=== PATIENT | female | born 1950 | race Caucasian/White ===

== ENCOUNTER → 2017-08-25 12:59 | Outpatient (CLI) | payer OTHER ==
[~2017-08-25 12:59] MED LIST: BENTYL10 MG/ML; EVISTA60 MG; PREVACID15 MG; SYNTHROID50 MCG; ZANTAC15 MG/ML
== END | disposition home or self-care (01) ==
LOC: LAB 12:59
DX: Z00.00 Encounter for general adult medical examination without abnormal findings (principal); R50.9 Fever, unspecified; J06.9 Acute upper respiratory infection, unspecified

== ENCOUNTER 2017-11-01 15:00 | Outpatient (CLI) | payer OTHER | END 2017-11-01 15:11 | disposition home or self-care (01) | LOC: RAD 501 15:00 | DX: R06.02 Shortness of breath (principal); J45.41 Moderate persistent asthma with (acute) exacerbation ==

== ENCOUNTER → 2017-11-01 16:11 | Outpatient (CLI) | payer OTHER | END | disposition home or self-care (01) | LOC: LAB 14:21 | DX: E03.8 Other specified hypothyroidism (principal); R10.84 Generalized abdominal pain; K85.90 Acute pancreatitis without necrosis or infection, unspecified ==

== ENCOUNTER 2017-11-01 16:12 | Outpatient (CLI) | payer OTHER | END 2017-11-01 16:18 | disposition home or self-care (01) | LOC: SONOGRAMA 16:12 | DX: R10.84 Generalized abdominal pain (principal) ==

== ENCOUNTER → 2017-11-06 | Outpatient (CLI) | payer OTHER | END | disposition home or self-care (01) | LOC: LAB 12:38 | DX: M05.60 Rheumatoid arthritis of unspecified site with involvement of other organs and systems (principal) ==

== ENCOUNTER → 2017-11-07 | Emergency (ER) | payer OTHER ==
[~2017-11-07] VITALS: Ht 170.2 cm; Wt 52.2 kg
== END | disposition home or self-care (01) ==
LOC: ER 10:57
DX: R60.0 Localized edema (principal); R53.1 Weakness; T40.4X5A Adverse effect of other synthetic narcotics, initial encounter; Y92.89 Other specified places as the place of occurrence of the external cause

== ENCOUNTER → 2017-12-05 | Emergency (ER) | payer OTHER ==
[~2017-12-05] VITALS: Ht 160 cm; Wt 50.8 kg
[~2017-12-05] MED LIST changes: +CIPRO500 MG; +CLARITIN10 M1; +COZAAR25 MG; +EVISTA60 MG PO; +LASIX40 MG; +LEVAQUIN500 MG; +SINGULAIR10 MG; +SINGULAIR4 MG PO; +SYNTHROID50 MCG PO; +XOPENEX HFA15 GM
== END | disposition home or self-care (01) ==
LOC: ER 16:30
DX: J11.1 Influenza due to unidentified influenza virus with other respiratory manifestations (principal); J40 Bronchitis, not specified as acute or chronic; E86.0 Dehydration; R10.13 Epigastric pain

== ENCOUNTER 2018-03-11 10:33 | Outpatient (CLI) | payer OTHER | END 2018-03-11 10:34 | disposition home or self-care (01) | LOC: MAMO-SONO 10:33 | DX: Z12.31 Encounter for screening mammogram for malignant neoplasm of breast (principal); Z87.898 Personal history of other specified conditions; N60.11 Diffuse cystic mastopathy of right breast; N60.12 Diffuse cystic mastopathy of left breast ==